=== PATIENT | female | born 1995 | race Caucasian/White ===

== ENCOUNTER 2024-04-07 19:40 | Inpatient (IN) ==
[2024-04-07] MEDS ORDERED: OXYTOCIN 30 UNITS/NSS 30 UNITS/500 ML BAG IV PRN (20:38)
[2024-04-07] MEDS ORDERED: LIDOCAINE 1% LOCAL 20 ML VIAL INFIL PRN (20:38)
--- NOTE | 2024-04-07 21:12 | History & Physical Report ---
Date of Service April 07, 2024 Assessment & Plan (1) Diabetes mellitus during , antepartum: Plan: Admit to L&D, offered to start IOL with cytotec tonight vs repeated tries with bey bulb, vs go home and start tomorrow. She elected to stay tonight and sta rt cytotec for cervical ripening. Because exam was so uncomfortable for patient, will give 50 mcg cytotec PO Q4h. OK for epidural when she desires, when cervix favorable will switch to pitocin. She is agreeable with this plan. Penicillin for GBS prophylaxis ordered. I discussed case with pharmacist - will plan to allow her to eat (since she did not plan to be staying tonight) before cytotec dose, therefore will give evening Lantus 55u dose. Then will have pharmacy sliding scale coverage for glucose, then when she progresses into active labor will switch to the L&D insulin/glucose IV protocol. She takes 1000mg metformin BID, will hold this for now given insulin protocols. History of Present Illness Chief Complaint: IOL Primary Care Provider: NO PCP 28yo @ 39 0, IOL for diabetes type 2 on insulin. Attempted bey bulb insertion multiple times tonight - too painful. Patient recalls that an IUD placement was extremely painful in the past also. Attempted both speculum insertion and manual-guided insertion, not able to tolerate. 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[employer]) insulin degludec 100 unit/mL (3 15 unit (0.15 mL) subcut DAILY #15 11/26/23 04/07/24 Rx mL) subcutaneous pen (Tresiba mL FlexTouch U-100 insulin) insulin pump cart,automated,BT #10 ea 12/06/23 04/07/24 Rx (Omnipod 5 G6 Pods (Gen 5) subcutaneous cartridge) insulin pump cartridge,automated #1 ea 12/06/23 04/07/24 Rx dose,BT with controller subcutaneous (Omnipod 5 G6 Intro Kit (Gen 5) subcutaneous cartridge with controller) blood-glucose sensor (Dexcom G7 #3 ea 12/10/23 04/07/24 Rx Sensor device) pen needle, diabetic 32 gauge x #200 ea 12/10/23 04/07/24 Rx 5/32" (BD Ultra-Fine Elicia Pen Needle) insulin aspart U-100 100 unit/mL 50 unit (0.5 mL) subcut DAILY #15 03/28/24 04/07/24 Rx (3 mL) subcutaneous pen (Novolog mL FlexPen U-100 Insulin aspart) insulin glargine 100 unit/mL (3 55 unit subcut QPM 04/07/24 04/07/24 History mL) subcutaneous pen (Lantus Solostar U-100 Insulin) metformin 500 mg tablet,extended 1,000 mg PO BID 04/07/24 04/07/24 History release 24 hr Patient History Medical History Osteochondroma knee History of chicken pox Surgical History S/P knee surgery Family History Mother Breast cancer Diabetes Grandmother (Maternal) Breast cancer Denies family history of Ovarian cancer Colorectal cancer Social History Smoking Status: Former smoker Do You Dip or Chew Tobacco: No; Hx Alcohol Use: No Hx Substance Use: No Preferred Language: Qatari Communication Ability: Effective Guyline Operator Required: No Beliefs That Will Affect Care: None marital status: marital status details: Stiven Rao (30) [phone] Current Living Situation: Family Current Living Situation Comment: lives with spouse, child, cats-spouse changing litter current occupational status: employed current occupation: [employer] Other Information That Helps Us Care for You: No Feels Safe at Home: Yes Safety Concerns: Feels Safe At This Time Assistive Devices: None Review of Systems All systems reviewed & are unremarkable except as noted in HPI & below Physical Exam Constitutional: WD/WN, vitals as above Respiratory: normal respiratory effort, lungs clear to auscultation no respiratory distress Cardiovascular: Rate/Rhythm: regular rate and regular rhythm Gastrointestinal (Abdomen): Inspection/Auscultation: abdomen normal to inspection Percussion/Palpation: abdomen soft; abdomen nontender Gravid. No s/s chorio or abruption. Skin: no rashes, warm and dry Psychiatric: A+Ox3, euthymic affect Results & Data Vital Signs (Past 12 Hours) Vital Signs Temp Pulse Resp BP 04/07/24 19:52 36.8 C 16 04/07/24 19:45 91 H 136/71 Coding Level of Care Code None Diagnoses Diabetes mellitus during , antepartum O24.919
[2024-04-07] MEDS ORDERED: DEXTROSE 50% 50 ML SYRINGE IV PRN ×2 (21:15→21:45)
[2024-04-07] MEDS ORDERED: CARBOHYDRATES FOR HYPOGLYCEMIA PO PRN ×2 (21:15→21:45)
[2024-04-07] MEDS ORDERED: GLUCOSE 40% GEL 15 GM TUBE PO PRN ×2 (21:15→21:45)
[2024-04-07] MEDS ORDERED: GLUCOSE 10 TAB/TUBE PO PRN ×2 (21:15→21:45)
[2024-04-07] MEDS ORDERED: GLUCAGON FOR INJ 1 MG VIAL SQ PRN ×2 (21:15→21:45)
[2024-04-07 21:52] LABS: Hematocrit (blood only) 30.7 % (37.0-47.0); Hemoglobin 9.9 g/dl (12.0-16.0); Mean Corpuscular Hemoglobin 26.6 pg (25.0-34.0); Mean Corpuscular Hgb Conc 32.2 g/dL (32.0-36.0); Mean Corpuscular Volume 82.5 fL (80.0-100.0); Mean Platelet Volume 9.8 fL (9.4-12.4); Platelet Count 273 K/uL (130-400); RDW Coefficient of Variation 15.6 % (11.5-14.5); RDW Standard Deviation 46.8 fL (36.4-46.3); Red Blood Count 3.72 M/uL (4.20-5.40); White Blood Count 9.18 K/ul (4.8-10.8)
[2024-04-07] MEDS: LANTUS PER UNIT CHARGE SQ SCH (22:10)
[2024-04-07] MEDS: INSULIN ASPART PER UNIT CHARGE SC ONE (22:15)
[2024-04-07] MEDS: miSOPROStoL 50 MCG TAB PO PRN (22:18)
[2024-04-07] MEDS: PENICILLIN GK 6 MU in SODIUM CHLORIDE 0.9% 250 ML IV STA (22:20)
[2024-04-08] MEDS: PENICILLIN GK 3 MU in DEXTROSE 5% 100 ML IV PRN (02:21)
[2024-04-08] MEDS: LACTATED RINGER'S 1,000 ML IV SCH ×3 (04:45→22:24)
[2024-04-08] MEDS ORDERED: SODIUM CHLORIDE 0.9% 1,000 ML IV PRN (04:51)
[2024-04-08] MEDS: INSULIN ASPART PER UNIT CHARGE SC ONE (04:53)
[2024-04-08] MEDS: OXYTOCIN 30 UNITS/NSS 30 UNITS/500 ML BAG IV PRN (04:54)
[2024-04-08] MEDS: INSULIN REGULAR 250 UNITS in SODIUM CHLORIDE 0.9% 247.5 ML IV PRN (05:52)
[2024-04-08] MEDS: DEXTROSE 5% 1,000 ML IV PRN (05:53)
[2024-04-08] MEDS ORDERED: DEXTROSE 50% 50 ML SYRINGE IV PRN ×2 (06:00→22:34)
[2024-04-08] MEDS: BUTORPHANOL TARTRATE 2 MG/ML VIAL IV ONE ×2 (09:10→18:15)
--- NOTE | 2024-04-08 09:28 | Labor Progress Brief Note ---
Date of Service April 08, 2024 Subjective Patient noting some contractions but not too painful. Assessment & Plan (1) Carrier of group B Streptococcus: (2) Diabetes mellitus type 2 in obese: (3) Encounter for induction of labor: Plan attempted exam after a dose of stadol. did not tolerate well. still would benefit from cervical ripening. Discussed various options. Patient elects for epidural now and then will reexamine. Consider bey if indicated. STill anticipate . fetus category one prior to stadol. Admission and Anticipated Discharge Date Admission Date: April 07, 2024 Physical Exam Physical Exam: cx--difficult exam, 1-2/75/-2/very posterior very uncomfortable with exam toco--q2-3min, pit at 5 efm--130s with mod variabiltiy, accels present, now with stadol effect Results & Data Vital Signs (Past 12 Hours) Vital Signs Temp Pulse Resp BP 04/08/24 09:02 80 132/75 04/08/24 08:14 77 124/61 04/08/24 07:20 36.8 C 82 20 114/67 04/08/24 05:58 72 109/58 L 04/08/24 05:00 16 04/08/24 05:00 36.6 C 16 04/08/24 04:58 77 109/56 L 04/07/24 23:47 88 115/59 L 04/07/24 23:29 36.5 C 04/07/24 23:00 16 04/07/24 23:00 16 Coding Level of Care Code None Diagnoses Carrier of group B Streptococcus Z22.330 Diabetes mellitus type 2 in obese E11.69; E66.9 Encounter for induction of labor Z34.90
--- NOTE | 2024-04-08 09:45 | Anesthesiology Consultation ---
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) insulin degludec 100 unit/mL (3 15 unit (0.15 mL) subcut DAILY #15 11/26/23 04/07/24 Unknown mL) subcutaneous pen (Tresiba mL FlexTouch U-100 insulin) insulin pump cart,automated,BT #10 ea 12/06/23 04/07/24 Unknown (Omnipod 5 G6 Pods (Gen 5) subcutaneous cartridge) insulin pump cartridge,automated #1 ea 12/06/23 04/07/24 Unknown dose,BT with controller subcutaneous (Omnipod 5 G6 Intro Kit (Gen 5) subcutaneous cartridge with controller) blood-glucose sensor (Dexcom G7 #3 ea 12/10/23 04/07/24 Unknown Sensor device) pen needle, diabetic 32 gauge x #200 ea 12/10/23 04/07/24 Unknown /32" (BD Ultra-Fine Elicia Pen Needle) insulin aspart U-100 100 unit/mL 50 unit (0.5 mL) subcut DAILY #15 03/28/24 04/07/24 1 Day Ago (3 mL) subcutaneous pen (Novolog mL ~04/06/24 FlexPen U-100 Insulin aspart) insulin glargine 100 unit/mL (3 55 unit subcut QPM 04/07/24 04/07/24 1 Day Ago mL) subcutaneous pen (Lantus ~04/06/24 Solostar U-100 Insulin) metformin 500 mg tablet,extended 1,000 mg PO BID 04/07/24 04/07/24 1 Day Ago release 24 hr ~04/06/24 Active Medications Generic Name Dose Route Start Last Admin Trade Name Freq PRN Reason Stop Dose Admin Oxytocin 30 units in 500 mls @ 5 mls/hr 04/07/24 20:43 04/08/24 07:47 Pitocin 30 Units/Nss IV 04/09/24 20:42 0.3 units/hr .Q24H PRN 5 mls/hr Labor Induction/Augmentation Titration Protocol 0.3 UNITS/HR Penicillin G Potassium 3 mu/ 106 mls @ 100 mls/hr 04/07/24 23:38 04/08/24 06:20 Dextrose IV 04/17/24 23:37 100 mls/hr Q4H PRN Administration GBS(+) Until Delivery Insulin Human Regular 250 250 mls @ 0 mls/hr 04/08/24 06:00 04/08/24 08:45 units/ Sodium Chloride IV 05/08/24 05:59 0.5 units/hr .Q0M PRN 0.5 mls/hr BSG 80mg/dL or ABOVE Titration Protocol Per Protocol Dextrose 1,000 mls @ 0 mls/hr 04/08/24 04:45 04/08/24 08:45 D5w IV 05/08/24 04:44 100 mls/hr .Q0M PRN Infusion BSG 180 or below Protocol Lactated Ringer's 1,000 mls @ 50 mls/hr 04/08/24 06:00 04/08/24 07:46 Lr IV 04/09/24 05:59 50 mls/hr .Q20H BREANNE Infusion Misoprostol 50 mcg 04/07/24 20:38 04/07/24 22:18 Misoprostol 50 Mcg Tab PO 05/07/24 20:37 50 mcg Q4H PRN Administration cervical ripening Past Medical History Medical History (Updated 04/08/24 @ 09:45 by Sudheer Gonzalez MD) Diabetes mellitus during , antepartum Osteochondroma knee History of chicken pox Past Family History Family History Mother Breast cancer Diabetes Grandmother (Maternal) Breast cancer Denies family history of Ovarian cancer Colorectal cancer Past Surgical History Surgical History S/P knee surgery Social History Smoking Status: Former smoker Do You Dip or Chew Tobacco: No Hx Alcohol Use: No Hx Substance Use: No Physical Exam Vital Signs Last Vital Signs Temp 36.8 C 04/08/24 07:20 Pulse 80 04/08/24 09:02 Resp 20 04/08/24 07:20 BP 132/75 04/08/24 09:02 Testing Laboratory Results 04/07/24 21:13 04/07/24 21:13 Blood Type A Positive 04/07/24 21:13 Blood Type Cancelled 04/07/24 21:13 Antibody Screen Cancelled 04/07/24 21:13 Antibody Screen NEGATIVE 04/07/24 21:13 04/07/24 21:45 POC Glucose 109 H
[2024-04-08] MEDS: fentaNYL citrate PF 100 MCG/2 ML VIAL ONE (10:10)
[2024-04-08] MEDS: LIDOCAINE 2%/EPINEPHRINE 1:200,000 20 ML PF ONE (10:10)
[2024-04-08] MEDS: BUPIVACAINE 0.25% PF 30 ML VIAL ONE (10:10)
[2024-04-08] MEDS: SODIUM CHLORIDE 0.9% PF INJ 10 ML VIAL ONE (10:10)
[2024-04-08] MEDS: fentANYL 2 MCG/ML BUPIVacaine 0.125%-NSS 100ML BAG ONE (10:12)
[2024-04-08] MEDS ORDERED: BUPIVACAINE 0.25% PF 30 ML VIAL EPI PRN (10:12)
[2024-04-08] MEDS ORDERED: ONDANSETRON INJ 2 MG/ML 2 ML VIAL IV PRN ×2 (10:12→21:40)
[2024-04-08] MEDS ORDERED: fentaNYL citrate PF 100 MCG/2 ML VIAL EPI PRN (10:12)
[2024-04-08] MEDS ORDERED: NALOXONE HCL 1 MG in SODIUM CHLORIDE 0.9% 1,000 ML IV PRN ×2 (10:12→21:40)
[2024-04-08] MEDS ORDERED: LIDOCAINE 2% MPF LOCAL 5 ML VIAL EPI PRN (10:12)
[2024-04-08] MEDS ORDERED: ePHEDrine sulfate 50 MG/ML AMP IV PRN ×2 (10:12→21:40)
[2024-04-08] MEDS ORDERED: SODIUM CHLORIDE 0.9% PF INJ 10 ML VIAL EPI PRN (10:12)
[2024-04-08] MEDS ORDERED: NALOXONE HCL 0.4 MG/1 ML VIAL/CARP IV PRN ×2 (10:12→21:40)
[2024-04-08] MEDS ORDERED: ROPIVACAINE 0.5% PF 5 MG/ML 20 ML VIAL EPI PRN (10:12)
--- NOTE | 2024-04-08 11:46 | Labor Progress Brief Note ---
Date of Service April 08, 2024 Subjective comfortable after epidura. Assessment & Plan (1) Diabetes mellitus type 2 in obese: (2) Encounter for induction of labor: (3) Carrier of group B Streptococcus: Plan not a candidate for bey at this point. has gross srom. Plan to continue pitocin at this point. cx more favorable now that I can get a good exam. Fetus category one. AT us on 03/13, AC and efw both >95%. efw at that time 3283+/- 17 oz (476gm). Discussed that would like not instrument her as with larger baby and DM at higher risk of shoulder dystocia. Do not feel need to offer primary c/s. Has a proven pelvis. I suspect efw around 9-9.5. Patient and spouse express understanding. Admission and Anticipated Discharge Date Admission Date: April 07, 2024 Physical Exam Physical Exam: in placing patient in lithotomy position, noted her pad was wet and fluid was coming out of vagina. sse--fluid in vagina, clear sve--3/75/-2/soft toco--q2-3min, pit at 5 efm--130s with mod variability, accels to 150s Results & Data Vital Signs (Past 12 Hours) Vital Signs Temp Pulse Resp BP Pulse Ox 04/08/24 11:38 71 99 04/08/24 11:33 72 97 04/08/24 11:31 72 125/66 04/08/24 11:28 36.5 C 75 98 04/08/24 11:23 91 H 96 04/08/24 11:18 65 100 04/08/24 11:16 71 121/70 04/08/24 11:13 97 04/08/24 11:13 60 04/08/24 11:13 58 L 93 04/08/24 11:08 59 L 97 04/08/24 11:03 69 97 04/08/24 11:02 73 124/69 04/08/24 10:58 66 96 04/08/24 10:53 64 94 04/08/24 10:51 61 94 04/08/24 10:48 73 96 04/08/24 10:43 94 04/08/24 10:43 59 L 04/08/24 10:43 63 94 04/08/24 10:42 59 L 110/63 04/08/24 10:38 95 04/08/24 10:38 61 04/08/24 10:38 60 116/65 04/08/24 10:35 74 94 04/08/24 10:34 62 119/57 L 04/08/24 10:33 63 96 04/08/24 10:28 62 95 04/08/24 10:26 66 127/60 04/08/24 10:23 66 97 04/08/24 10:19 84 124/80 89 L 04/08/24 10:18 72 98 04/08/24 10:16 75 123/60 04/08/24 10:14 72 127/60 04/08/24 10:13 97 04/08/24 10:13 70 04/08/24 10:13 79 140/73 04/08/24 10:12 83 91 04/08/24 10:10 75 131/63 04/08/24 10:08 69 146/66 H 96 04/08/24 10:07 78 145/61 H 04/08/24 10:05 86 94 04/08/24 10:03 98 H 92 04/08/24 10:00 107 H 92 04/08/24 09:58 79 143/84 H 96 04/08/24 09:53 84 100 04/08/24 09:48 77 96 04/08/24 09:43 77 97 04/08/24 09:02 80 132/75 04/08/24 08:14 77 124/61 04/08/24 07:20 36.8 C 82 20 114/67 04/08/24 05:58 72 109/58 L 04/08/24 05:00 16 04/08/24 05:00 36.6 C 16 04/08/24 04:58 77 109/56 L 04/07/24 23:47 88 115/59 L Coding Level of Care Code None Diagnoses Diabetes mellitus type 2 in obese E11.69; E66.9 Encounter for induction of labor Z34.90 Carrier of group B Streptococcus Z22.330
[2024-04-08] MEDS: ePHEDrine sulfate 50 MG/ML AMP ONE (16:07)
[2024-04-08] MEDS ORDERED: NURSING L&D Epidural Breakthrough Pain Update ONE (16:08)
--- NOTE | 2024-04-08 17:20 | Labor Progress Brief Note ---
Date of Service April 08, 2024 Subjective Notes some contractions but does not want to push buttom because the numbness is disconcerting to her. Assessment & Plan (1) Diabetes mellitus type 2 in obese: (2) Encounter for induction of labor: (3) Carrier of group B Streptococcus: Plan await to see adequacy of contractions. Can increase pit if not adequate. made a little change so hopefully on the verge of active labor. fetus category one. Admission and Anticipated Discharge Date Admission Date: April 07, 2024 Physical Exam Physical Exam: cx--4/80/-2 toco--q2-3min, pit at 20 iupc placed efm--130s with mod variability, accels present, no decels Results & Data Vital Signs (Past 12 Hours) Vital Signs Temp Pulse Resp BP Pulse Ox 04/08/24 17:13 87 96 04/08/24 17:08 82 96 04/08/24 17:04 93 H 93 04/08/24 17:03 81 96 04/08/24 17:02 73 131/77 04/08/24 16:58 79 96 04/08/24 16:53 79 98 04/08/24 16:48 95 H 20 162/88 H 98 04/08/24 16:43 72 97 04/08/24 16:38 73 95 04/08/24 16:33 71 97 04/08/24 16:32 79 147/87 H 04/08/24 16:28 72 94 04/08/24 16:25 67 94 04/08/24 16:23 73 96 04/08/24 16:18 96 04/08/24 16:18 74 04/08/24 16:18 74 134/83 04/08/24 16:13 74 97 04/08/24 16:08 71 96 04/08/24 16:03 97 04/08/24 16:03 75 04/08/24 16:03 73 141/75 H 04/08/24 15:58 73 97 04/08/24 15:53 84 99 04/08/24 15:48 69 95 04/08/24 15:46 92 H 20 121/57 L 04/08/24 15:43 88 98 04/08/24 15:38 72 94 04/08/24 15:33 67 97 04/08/24 15:31 71 115/57 L 04/08/24 15:28 70 95 04/08/24 15:26 71 94 04/08/24 15:23 71 94 04/08/24 15:19 69 94 04/08/24 15:18 95 04/08/24 15:18 70 04/08/24 15:18 71 113/56 L 04/08/24 15:13 73 97 04/08/24 15:08 76 96 04/08/24 15:03 77 97 04/08/24 15:02 76 117/61 04/08/24 14:58 83 98 04/08/24 14:55 36.8 C 04/08/24 14:53 82 97 04/08/24 14:48 96 04/08/24 14:48 83 04/08/24 14:48 81 20 128/71 04/08/24 14:43 86 97 04/08/24 14:38 68 96 04/08/24 14:33 68 96 04/08/24 14:32 65 131/67 04/08/24 14:28 67 96 04/08/24 14:23 74 94 04/08/24 14:19 71 128/66 04/08/24 14:18 72 95 04/08/24 14:14 71 94 04/08/24 14:13 76 96 04/08/24 14:08 78 95 04/08/24 14:03 80 96 04/08/24 14:01 78 134/78 04/08/24 13:58 78 98 04/08/24 13:53 83 97 04/08/24 13:49 70 94 04/08/24 13:48 70 95 04/08/24 13:47 72 20 132/67 04/08/24 13:43 75 95 04/08/24 13:38 69 96 04/08/24 13:33 74 97 04/08/24 13:31 78 134/70 04/08/24 13:30 91 H 93 04/08/24 13:28 77 97 04/08/24 13:23 76 98 04/08/24 13:18 96 04/08/24 13:18 69 04/08/24 13:18 66 123/66 04/08/24 13:13 69 96 04/08/24 13:08 78 97 04/08/24 13:03 68 96 04/08/24 13:02 67 133/64 04/08/24 12:58 72 97 04/08/24 12:53 76 97 04/08/24 12:48 79 97 04/08/24 12:47 65 18 123/66 04/08/24 12:43 68 97 04/08/24 12:38 80 97 04/08/24 12:33 78 98 04/08/24 12:32 75 135/75 04/08/24 12:28 67 96 04/08/24 12:23 67 97 04/08/24 12:18 64 96 04/08/24 12:17 61 131/72 04/08/24 12:13 66 96 04/08/24 12:08 64 96 04/08/24 12:03 97 04/08/24 12:03 63 04/08/24 12:03 65 132/76 04/08/24 11:58 67 95 04/08/24 11:53 72 97 04/08/24 11:48 73 98 04/08/24 11:47 74 127/76 04/08/24 11:43 66 98 04/08/24 11:38 71 99 04/08/24 11:33 72 97 04/08/24 11:31 72 125/66 04/08/24 11:28 36.5 C 75 98 04/08/24 11:23 91 H 96 04/08/24 11:18 65 100 04/08/24 11:16 71 121/70 04/08/24 11:13 97 04/08/24 11:13 60 04/08/24 11:13 58 L 93 04/08/24 11:08 59 L 97 04/08/24 11:03 69 97 04/08/24 11:02 73 124/69 04/08/24 10:58 66 96 04/08/24 10:53 64 94 04/08/24 10:51 61 94 04/08/24 10:48 73 96 04/08/24 10:43 94 04/08/24 10:43 59 L 04/08/24 10:43 63 94 04/08/24 10:42 59 L 110/63 04/08/24 10:38 95 04/08/24 10:38 61 04/08/24 10:38 60 116/65 04/08/24 10:35 74 94 04/08/24 10:34 62 119/57 L 04/08/24 10:33 63 96 04/08/24 10:28 62 95 04/08/24 10:26 66 127/60 04/08/24 10:23 66 97 04/08/24 10:19 84 124/80 89 L 04/08/24 10:18 72 98 04/08/24 10:16 75 123/60 04/08/24 10:14 72 127/60 04/08/24 10:13 97 04/08/24 10:13 70 04/08/24 10:13 79 140/73 04/08/24 10:12 83 91 04/08/24 10:10 75 131/63 04/08/24 10:08 69 146/66 H 96 04/08/24 10:07 78 145/61 H 04/08/24 10:05 86 94 04/08/24 10:03 98 H 92 04/08/24 10:00 107 H 92 04/08/24 09:58 79 143/84 H 96 04/08/24 09:53 84 100 04/08/24 09:48 77 96 04/08/24 09:43 77 97 04/08/24 09:02 80 132/75 04/08/24 08:14 77 124/61 04/08/24 07:20 36.8 C 82 20 114/67 04/08/24 05:58 72 109/58 L Coding Level of Care Code None Diagnoses Diabetes mellitus type 2 in obese E11.69; E66.9 Encounter for induction of labor Z34.90 Carrier of group B Streptococcus Z22.330
[2024-04-08] MEDS: fentANYL 2 MCG/ML BUPIVacaine 0.125%-NSS 100ML BAG EPI PRN (17:24)
[2024-04-08] MEDS ORDERED: Continuous Glucose Monitor SCH (17:45)
[2024-04-08] MEDS: Continuous Glucose Monitor SCH (19:15)
--- NOTE | 2024-04-08 19:59 | Labor Progress Brief Note ---
Date of Service April 08, 2024 Subjective Patient not coping well. continues to ask for med for anxiety. Everything is hurting but she is hesitant to push her epidural button. iupc removed as was not working. she is now asking about c/s. Assessment & Plan (1) Diabetes mellitus type 2 in obese: (2) Encounter for induction of labor: (3) Carrier of group B Streptococcus: Plan Reviewed progress up to this point. Not yet in active labor. Still hopeful that she will achieve active labor. fetus category one. Discussed the pros/cons of continued SEAN vs. elective primary c/s. discussed that it would be up to her. Questions answered. The risks of surgery were discussed with the patient including the risks of anesthesia, bleeding requiring transfusion, infection, poor wound healing, urinary retention, damage to surrounding structures including bowels, bladder, vessels, nerves and ureters that may require further surgery, hospitalization or intervention, injury to fetus. The other risks of any surgery were discussed including heart attack, blood clots, stroke or . Discussed that I think she would do better if we got her more comfortable. Finally she expressed concern that she would push for several hours and need a c/s anyway and also concern for shoulder dystocia. Discussed there is no way for me to be able to know the answer to any of these things. They are considering. Admission and Anticipated Discharge Date Admission Date: April 07, 2024 Results & Data Vital Signs (Past 12 Hours) Vital Signs Temp Pulse Resp BP Pulse Ox 04/08/24 19:53 78 98 04/08/24 19:48 75 94 04/08/24 19:43 83 97 04/08/24 19:38 80 97 04/08/24 19:33 79 138/79 98 04/08/24 19:28 73 98 04/08/24 19:23 72 96 04/08/24 19:18 71 98 04/08/24 19:17 81 132/86 04/08/24 19:13 71 98 04/08/24 19:10 18 04/08/24 19:10 36.8 C 18 04/08/24 19:08 89 98 04/08/24 19:03 82 98 04/08/24 19:02 85 04/08/24 19:02 86 147/82 H 93 04/08/24 18:58 67 94 04/08/24 18:55 65 94 04/08/24 18:53 65 94 04/08/24 18:50 65 94 04/08/24 18:48 64 95 04/08/24 18:47 63 139/78 04/08/24 18:43 67 94 04/08/24 18:40 66 94 04/08/24 18:38 65 94 04/08/24 18:35 64 94 04/08/24 18:33 61 125/68 95 04/08/24 18:29 61 94 04/08/24 18:28 64 95 04/08/24 18:23 91 H 97 04/08/24 18:18 82 97 04/08/24 18:13 69 97 04/08/24 18:08 77 96 04/08/24 18:03 77 97 04/08/24 18:02 80 145/68 H 04/08/24 17:58 72 95 04/08/24 17:54 77 94 04/08/24 17:53 90 96 04/08/24 17:48 76 95 04/08/24 17:47 75 117/56 L 04/08/24 17:43 81 97 04/08/24 17:38 79 97 04/08/24 17:33 97 04/08/24 17:33 84 04/08/24 17:33 74 124/63 04/08/24 17:28 96 H 98 04/08/24 17:23 76 97 04/08/24 17:19 80 124/57 L 04/08/24 17:18 81 96 04/08/24 17:13 87 96 04/08/24 17:08 82 96 04/08/24 17:04 93 H 93 04/08/24 17:03 81 96 04/08/24 17:02 73 131/77 04/08/24 16:58 79 96 04/08/24 16:53 79 98 04/08/24 16:48 95 H 20 162/88 H 98 04/08/24 16:43 72 97 04/08/24 16:38 73 95 04/08/24 16:33 71 97 04/08/24 16:32 79 147/87 H 04/08/24 16:28 72 94 04/08/24 16:25 67 94 04/08/24 16:23 73 96 04/08/24 16:18 96 04/08/24 16:18 74 04/08/24 16:18 74 134/83 04/08/24 16:13 74 97 04/08/24 16:08 71 96 04/08/24 16:03 97 04/08/24 16:03 75 04/08/24 16:03 73 141/75 H 04/08/24 15:58 73 97 04/08/24 15:53 84 99 04/08/24 15:48 69 95 04/08/24 15:46 92 H 20 121/57 L 04/08/24 15:43 88 98 04/08/24 15:38 72 94 04/08/24 15:33 67 97 04/08/24 15:31 71 115/57 L 04/08/24 15:28 70 95 04/08/24 15:26 71 94 04/08/24 15:23 71 94 04/08/24 15:19 69 94 04/08/24 15:18 95 04/08/24 15:18 70 04/08/24 15:18 71 113/56 L 04/08/24 15:13 73 97 04/08/24 15:08 76 96 04/08/24 15:03 77 97 04/08/24 15:02 76 117/61 04/08/24 14:58 83 98 04/08/24 14:55 36.8 C 04/08/24 14:53 82 97 04/08/24 14:48 96 04/08/24 14:48 83 04/08/24 14:48 81 20 128/71 04/08/24 14:43 86 97 04/08/24 14:38 68 96 04/08/24 14:33 68 96 04/08/24 14:32 65 131/67 04/08/24 14:28 67 96 04/08/24 14:23 74 94 04/08/24 14:19 71 128/66 04/08/24 14:18 72 95 04/08/24 14:14 71 94 04/08/24 14:13 76 96 04/08/24 14:08 78 95 04/08/24 14:03 80 96 04/08/24 14:01 78 134/78 04/08/24 13:58 78 98 04/08/24 13:53 83 97 04/08/24 13:49 70 94 04/08/24 13:48 70 95 04/08/24 13:47 72 20 132/67 04/08/24 13:43 75 95 04/08/24 13:38 69 96 04/08/24 13:33 74 97 04/08/24 13:31 78 134/70 04/08/24 13:30 91 H 93 04/08/24 13:28 77 97 04/08/24 13:23 76 98 04/08/24 13:18 96 04/08/24 13:18 69 04/08/24 13:18 66 123/66 04/08/24 13:13 69 96 04/08/24 13:08 78 97 04/08/24 13:03 68 96 04/08/24 13:02 67 133/64 04/08/24 12:58 72 97 04/08/24 12:53 76 97 04/08/24 12:48 79 97 04/08/24 12:47 65 18 123/66 04/08/24 12:43 68 97 04/08/24 12:38 80 97 04/08/24 12:33 78 98 04/08/24 12:32 75 135/75 04/08/24 12:28 67 96 04/08/24 12:23 67 97 04/08/24 12:18 64 96 04/08/24 12:17 61 131/72 04/08/24 12:13 66 96 04/08/24 12:08 64 96 04/08/24 12:03 97 04/08/24 12:03 63 04/08/24 12:03 65 132/76 04/08/24 11:58 67 95 04/08/24 11:53 72 97 04/08/24 11:48 73 98 04/08/24 11:47 74 127/76 04/08/24 11:43 66 98 04/08/24 11:38 71 99 04/08/24 11:33 72 97 04/08/24 11:31 72 125/66 04/08/24 11:28 36.5 C 75 98 04/08/24 11:23 91 H 96 04/08/24 11:18 65 100 04/08/24 11:16 71 121/70 04/08/24 11:13 97 04/08/24 11:13 60 04/08/24 11:13 58 L 93 04/08/24 11:08 59 L 97 04/08/24 11:03 69 97 04/08/24 11:02 73 124/69 04/08/24 10:58 66 96 04/08/24 10:53 64 94 04/08/24 10:51 61 94 04/08/24 10:48 73 96 04/08/24 10:43 94 04/08/24 10:43 59 L 04/08/24 10:43 63 94 04/08/24 10:42 59 L 110/63 04/08/24 10:38 95 04/08/24 10:38 61 04/08/24 10:38 60 116/65 04/08/24 10:35 74 94 04/08/24 10:34 62 119/57 L 04/08/24 10:33 63 96 04/08/24 10:28 62 95 04/08/24 10:26 66 127/60 04/08/24 10:23 66 97 04/08/24 10:19 84 124/80 89 L 04/08/24 10:18 72 98 04/08/24 10:16 75 123/60 04/08/24 10:14 72 127/60 04/08/24 10:13 97 04/08/24 10:13 70 04/08/24 10:13 79 140/73 04/08/24 10:12 83 91 04/08/24 10:10 75 131/63 04/08/24 10:08 69 146/66 H 96 04/08/24 10:07 78 145/61 H 04/08/24 10:05 86 94 04/08/24 10:03 98 H 92 04/08/24 10:00 107 H 92 04/08/24 09:58 79 143/84 H 96 04/08/24 09:53 84 100 04/08/24 09:48 77 96 04/08/24 09:43 77 97 04/08/24 09:02 80 132/75 04/08/24 08:14 77 124/61 Coding Level of Care Code None Diagnoses Diabetes mellitus type 2 in obese E11.69; E66.9 Encounter for induction of labor Z34.90 Carrier of group B Streptococcus Z22.330
[2024-04-08] MEDS: ACETAMINOPHEN 500 MG TAB ONE (20:40)
[2024-04-08] MEDS ORDERED: MoRPHine SULFATE PF 1 MG/ML 10 ML AMP/VIAL ONE (20:51)
[2024-04-08] MEDS ORDERED: LIDOCAINE 2%/EPINEPHRINE 1:200,000 20 ML PF ONE (20:51)
[2024-04-08] MEDS: ACETAMINOPHEN 500 MG TAB PO SCH (20:53)
[2024-04-08] MEDS: ceFAZolin 3000MG 3,000 MG/72.5 ML BAG IV SCH (20:55)
[2024-04-08] MEDS: CITRIC ACID/SODIUM CITRATE 15 ML UDC PO SCH (20:55)
[2024-04-08] MEDS ORDERED: DEXAMETHASONE SOD INJ 4 MG/ML VIAL ONE (21:23)
[2024-04-08] MEDS ORDERED: SODIUM CHLORIDE 0.9% PF INJ 10 ML VIAL ONE (21:23)
[2024-04-08] MEDS ORDERED: OXYTOCIN 10 UNITS/ML VIAL ONE (21:23)
[2024-04-08] MEDS ORDERED: PHENYLEPHRINE HCL 25 MG/250 ML NSS IV ONE (21:23)
[2024-04-08] MEDS ORDERED: ePHEDrine sulfate 50 MG/5 ML SYR ONE (21:23)
[2024-04-08] MEDS ORDERED: ONDANSETRON INJ 2 MG/ML 2 ML VIAL ONE (21:23)
[2024-04-08] MEDS ORDERED: METOCLOPRAMIDE HCL INJ 5 MG/ML 2 ML VIAL ONE (21:23)
[2024-04-08] MEDS ORDERED: diphenhydrAMINE 50 MG/ML VIAL IV PRN (21:40)
[2024-04-08] MEDS ORDERED: PROMETHAZINE 6.25 MG/50.25 ML BAG IV PRN (21:40)
[2024-04-08] MEDS ORDERED: NALOXONE HCL 0.08 MG in SYRINGE 1.8 ML IV PRN (21:40)
[2024-04-08] MEDS ORDERED: NALBUPHINE HCL INJ 10 MG/ML AMP IV PRN (21:40)
[2024-04-08] MEDS ORDERED: MoRPHine SULFATE 2 MG/ML CARP IV PRN (21:40)
[2024-04-08] MEDS ORDERED: DC INTRASPINAL MORPHINE SCH (21:45)
[2024-04-08] MEDS ORDERED: NO NARCOTICS OR SEDATIVES SCH (21:45)
[2024-04-08] MEDS: BUPIVACAINE 0.25% PF 30 ML VIAL EPI STA (22:02)
[2024-04-08] MEDS: LIDOCAINE 2%/EPINEPHRINE 1:200,000 20 ML PF EPI STA (22:02)
[2024-04-08] MEDS: fentaNYL citrate PF 100 MCG/2 ML VIAL EPI STA (22:02)
[2024-04-08] MEDS: SODIUM CHLORIDE 0.9% PF INJ 10 ML VIAL EPI STA (22:03)
--- NOTE | 2024-04-08 22:09 | Anesthesia Procedure Note ---
Date of Service April 08, 2024 Anesthesia Post Epidural Note Vital Signs Vital Signs: Temp Pulse Resp BP Pulse Ox 36.8 C 90 18 137/77 98 04/08/24 19:15 04/08/24 22:07 04/08/24 19:15 04/08/24 21:01 04/08/24 22:07 Pain Intensity Abdomen: Pain Intensity: 5 Notes Mental Status: alert / awake / arousable and participated in evaluation Nausea / Vomiting: adequately controlled Pain: adequately controlled Airway Patency, RR, SpO2: stable & adequate BP & HR: stable & adequate Hydration State: stable & adequate Neuraxial Anesthesia: was administered and sensory block is resolving Anesthetic Complications: no major complications apparent Epidural: Removed without complications and With tip intact
[2024-04-08] MEDS ORDERED: MAGNESIUM HYDROXIDE SUSP 30 ML UDC PO PRN (22:20)
[2024-04-08] MEDS ORDERED: CALCIUM CARBONATE 500 MG CHEWABLE TAB PO PRN (22:20)
[2024-04-08] MEDS ORDERED: BENZOCAINE 20% SPRY 85 APPLN/85 GM CAN EXT PRN (22:20)
[2024-04-08] MEDS ORDERED: HYDROCORTISONE ACETATE 25 MG SUPP PR PRN (22:20)
[2024-04-08] MEDS ORDERED: SENNA 8.6 MG TAB PO PRN (22:20)
[2024-04-08] MEDS: AZITHROMYCIN 500 MG in DEXTROSE 5% 250 ML IV STA (22:22)
[2024-04-08] MEDS: MoRPHine SULFATE PF 1 MG/ML 10 ML AMP/VIAL EPI ONE (22:23)
--- NOTE | 2024-04-08 22:25 | Operative Report ---
PG Post Operative Report Pre & Post Diagnosis Operation Date: 04/08/24 20:30 Pre-Op Diagnosis: 1. Intrauterine at 39+1 weeks 2. Declines continuation of trail of labor, requesting a c/s 3. Diabetes, insulin controlled Post-Op Diagnosis: 1. Intrauterine at 39+1 weeks 2. Declines continuation of trail of labor, requesting a c/s 3. Diabetes, insulin controlled I identified the patient and participated in the time-out.: Yes Procedure Operation Date: 04/08/24 20:30 Actual Procedures p Primary low transverse Section in LD, live female infant born at 2125 - Martha Stephens MD, FACOG Surgeon Martha Stephens MD, FACOG Electrical Sign Wirer Helper Dixon Umanzor RN and Dixon Quiñonez RN Estimated Blood Loss 391 Findings Consistent with Post-Op Diagnosis viable female in cephalic presentation, clear fluid, apgars 8/9. normal appearing uterus/tubes/ovaries. Weight 9#7oz Fluids 1500cc Specimens none Drains bey Anesthesia Type Labor Epidural Complications none Disposition Accompanied Patient To Recovery: Yes Disposition: L&D Indications Patient is a 28yowf at 39 1/7 weeks who presents to labor and delivery for iol for pregestational diabetes. Could not place bey and received po cytotec for cervical ripening. Did not tolerate any exam well so got an epidural at 1-2cm. It was then discovered she had srom and was 2-3 cm. continued pitocin. she did progress to 4/80/-2. Unfortunately was not tolerating anything well with the labor. she was concerned she would push for several hours and need c/s anyway. She was also concerned about potential for shoulder dystocia. Discussed the r/b/se of continued renata and c/s and choses to proceed with surgery. Description of Procedure The patient was taken to the operating room where she was identified verbally and by bracelet. She was placed on the OR table and her epidural was dosed. A Bey catheter had been placed sterilely. the patient was prepped and draped in a normal standard fashion. the anesthetic was tested and found to be adequate. A time-out was held, identifying correct patient, procedure, positioning and preoperative antibiotics. There were no concerns. A Pfannenstiel skin incision was made with a knife and taken down to the underlying layer of fascia with the knife and Bovie electrocautery. Bleeding was attended to with the Bovie. The fascia was incised in the midline with the knife and taken out laterally bluntly and with scissors. The superior edge of the fascial incision was grasped, elevated and the underlying layer of rectus muscle was taken off bluntly and with scissors. In a similar fashion, the inferior edge of the fascial incision was grasped, elevated and the underlying layer of rectus muscle was taken off bluntly and with scissors. The muscles were bluntly in the midline. The peritoneum was entered bluntly. The incision was then stretched. The bladder blade was placed. The vesicouterine peritoneum was identified, entered with scissors and taken out laterally with scissors. The bladder flap was created digitally A hysterotomy incision was scored with a knife and the incision was stretched superiorly and inferiorly with the sole rounding machine operator's fingers. The operators hand was placed into the incision and the head was delivered atraumatically. No nuchal cord. The nose and mouth were bulb suctioned. the rest of the infant was then delivered without difficulty. The nose and mouth were again bulb suctioned. The cord was clamped and cut and the was then handed off to the awaiting damage adjuster for drying and attention. Cord blood and segment were obtained. The placenta was Manually extracted. The uterus was exteriorized and cleared of all clot and debris with moistened laparotomy sponges. The hysterotomy incision was repaired in two layers, the first in a running locked layer, the second in an imbricating layer. Hemostasis was noted to be good. Posterior cul-de-sac was irrigated and cleared of all clot and debris. The hysterotomy incision was again and two sutures needed for hemostasis. the uterus was reinteriorized. Hysterotomy incision was again and a couple of sutures were needed for hemostasis. Rectus muscles were inspected and hemostatic. The fascia was then reapproximated with 0 Vicryl starting at the edges and meeting in the midline. The subcuticular tissues were copiously irrigated and bleeding was attended to with cautery. The sub-Q was closed with 2-0 plain gut. The skin was then closed with 4-0 Vicryl in a subcuticular fashion. All sponge, lap and needle counts were correct x 2. the patient tolerated the procedure well and taken to recovery in stable condition. I attest to the content of the Intraoperative Record and any orders documented therein. Any exceptions are noted below. OB Procedure Charges 91407
[2024-04-08] MEDS ORDERED: GLUCOSE 10 TAB/TUBE PO PRN (22:34)
[2024-04-08] MEDS ORDERED: GLUCAGON FOR INJ 1 MG VIAL SQ PRN (22:34)
[2024-04-08] MEDS ORDERED: CARBOHYDRATES FOR HYPOGLYCEMIA PO PRN (22:34)
[2024-04-08] MEDS ORDERED: GLUCOSE 40% GEL 15 GM TUBE PO PRN (22:34)
[2024-04-08] MEDS: DIPHTHER/TETAN/PERTUS Vaccine (Tdap, Adol/Adult) 0.5mL IM ONE (22:42)
[2024-04-08] MEDS: KETOROLAC 30 MG/ML VIAL IV SCH (22:50)
[2024-04-08] MEDS: OXYTOCIN 30 UNITS/LR 1,003 ML IV SCH (22:51)
[2024-04-09] MEDS: oxyCODONE HCL IR 5 MG TAB (IMMEDIATE RELEASE) PO PRN (01:51)
[2024-04-09 02:08] VITALS: RESP 18
--- NOTE | 2024-04-09 05:22 | Obstetrical Progress Note ---
Date of Service <Devan Rivera MD - Last Filed: 04/09/24 07:07> April 09, 2024 Assessment & Plan <Devan Rivera MD - Last Filed: 04/09/24 07:07> (1) Carrier of group B Streptococcus: (2) care and examination: Plan POD#1 s/p LTCS: Stable, continue routine care, working on regaining bowel & bladder function, continue OOB and ambulation, diet as tolerated (advised eating in bedside chair), start home meds this morning Rh+, gbs+, ri <Martha Stephens MD, FACOG - Last Filed: 04/09/24 07:19> (1) Carrier of group B Streptococcus: (2) care and examination: Subjective <Devan Rivera MD - Last Filed: 04/09/24 07:07> Ambulation: ambulating normally Voiding: no voiding problems Passing Gas:: Yes Diet Tolerance:: regular diet Lochia:: Small Feeding Type:: breast feeding Faith is a 28 y/o female who is POD#1 following delivery at term. Is having 3/10 abdominal cramping/pain, which is well managed on analgesics Cath just removed, is tolerating meals, ambulating normally No BM or flatus yet Currently pumping breast milk Constitutional: no fever, no chills or no sweats Respiratory: no dyspnea Cardiovascular: no chest pain, no palpitations or no calf pain Breast: no breast pain Genitourinary (female): no dysuria Neurologic: no headache(s) no changes in vision, no headaches Physical Exam <Devan Rivera MD - Last Filed: 04/09/24 07:07> General: Alert, oriented. No acute distress. Cardiac: Regular rate and rhythm, no murmurs, rubs, or gallops. Respiratory: Clear to auscultation bilaterally, no wheezes/rales/rhonchi. No increased work of breathing. Symmetrical chest rise. No respiratory distress. Abdomen: Soft, nontender, nondistended. Bowel sounds present. Uterus: Uterine fundus firm, nontender. Surgical dressing c/d/i Lower extremities: No lower extremity edema or swelling. No deep calf pain. Results & Data <Devan Rivera MD - Last Filed: 04/09/24 07:07> Vital Signs (Past 12 Hours) Vital Signs Temp Pulse Pulse Resp BP BP Pulse Ox 04/09/24 03:00 18 93 04/09/24 02:00 18 94 04/09/24 01:45 36.6 C 72 20 115/72 97 04/09/24 00:11 84 119/55 L 04/09/24 00:10 36.8 C 18 04/09/24 00:07 78 90 04/09/24 00:02 82 94 04/09/24 00:01 83 123/60 04/08/24 23:57 79 94 04/08/24 23:52 83 95 04/08/24 23:51 80 119/61 04/08/24 23:47 78 94 04/08/24 23:46 76 82 L 04/08/24 23:42 85 95 04/08/24 23:41 85 119/66 04/08/24 23:40 36.8 C 18 04/08/24 23:37 80 95 04/08/24 23:32 79 95 04/08/24 23:31 78 119/59 L 04/08/24 23:27 77 94 04/08/24 23:22 80 95 04/08/24 23:21 75 122/72 04/08/24 23:17 74 95 04/08/24 23:12 95 04/08/24 23:12 76 94 04/08/24 23:11 72 120/93 04/08/24 23:10 36.8 C 18 04/08/24 23:10 36.8 C 18 04/08/24 23:07 83 95 04/08/24 23:04 83 94 04/08/24 23:02 88 96 04/08/24 23:01 77 118/65 04/08/24 23:00 36.9 C 18 04/08/24 22:58 76 94 04/08/24 22:57 72 96 04/08/24 22:52 80 96 04/08/24 22:51 75 111/59 L 04/08/24 22:50 36.9 C 18 04/08/24 22:47 81 97 04/08/24 22:42 85 98 04/08/24 22:41 82 105/57 L 04/08/24 22:40 36.9 C 18 04/08/24 22:37 87 98 04/08/24 22:32 84 97 04/08/24 22:31 77 104/59 L 04/08/24 22:30 36.9 C 18 04/08/24 22:27 79 96 04/08/24 22:22 75 97 04/08/24 22:21 77 105/55 L 04/08/24 22:20 36.9 C 18 04/08/24 22:18 88 92 04/08/24 22:17 89 97 04/08/24 22:13 76 90 04/08/24 22:12 75 96 04/08/24 22:10 36.9 C 18 04/08/24 22:10 80 99/58 L 04/08/24 22:07 98 04/08/24 22:07 90 04/08/24 22:07 109 H 93 04/08/24 21:01 89 137/77 04/08/24 20:59 87 94 04/08/24 20:58 96 H 100 04/08/24 20:53 78 97 04/08/24 20:48 113 H 96 04/08/24 20:43 90 95 04/08/24 20:38 80 96 04/08/24 20:33 100 H 96 04/08/24 20:32 77 125/68 04/08/24 20:28 75 96 04/08/24 20:23 74 96 04/08/24 20:18 93 H 97 04/08/24 20:17 107 H 152/81 H 04/08/24 20:13 70 91 04/08/24 20:08 74 96 04/08/24 20:03 74 96 04/08/24 19:58 71 97 04/08/24 19:53 78 98 04/08/24 19:48 75 94 04/08/24 19:43 83 97 04/08/24 19:38 80 97 04/08/24 19:33 79 138/79 98 04/08/24 19:28 73 98 04/08/24 19:23 72 96 04/08/24 19:18 71 98 04/08/24 19:17 81 132/86 04/08/24 19:15 36.8 C 18 04/08/24 19:13 71 98 04/08/24 19:10 18 04/08/24 19:10 36.8 C 18 04/08/24 19:08 89 98 04/08/24 19:03 82 98 04/08/24 19:02 85 04/08/24 19:02 86 147/82 H 93 04/08/24 18:58 67 94 04/08/24 18:55 65 94 04/08/24 18:53 65 94 04/08/24 18:50 65 94 04/08/24 18:48 64 95 04/08/24 18:47 63 139/78 04/08/24 18:43 67 94 04/08/24 18:40 66 94 04/08/24 18:38 65 94 04/08/24 18:35 64 94 04/08/24 18:33 61 125/68 95 04/08/24 18:29 61 94 04/08/24 18:28 64 95 04/08/24 18:23 91 H 97 04/08/24 18:18 82 97 04/08/24 18:13 69 97 04/08/24 18:08 77 96 04/08/24 18:03 77 97 04/08/24 18:02 80 145/68 H 04/08/24 17:58 72 95 04/08/24 17:54 77 94 04/08/24 17:53 90 96 04/08/24 17:48 76 95 04/08/24 17:47 75 117/56 L 04/08/24 17:43 81 97 04/08/24 17:38 79 97 04/08/24 17:33 97 04/08/24 17:33 84 04/08/24 17:33 74 124/63 04/08/24 17:28 96 H 98 04/08/24 17:23 76 97 O2 Del Method 04/09/24 03:00 04/09/24 02:00 04/09/24 01:45 Room Air 04/09/24 00:11 04/09/24 00:10 04/09/24 00:07 04/09/24 00:02 04/09/24 00:01 04/08/24 23:57 04/08/24 23:52 04/08/24 23:51 04/08/24 23:47 04/08/24 23:46 04/08/24 23:42 04/08/24 23:41 04/08/24 23:40 04/08/24 23:37 04/08/24 23:32 04/08/24 23:31 04/08/24 23:27 04/08/24 23:22 04/08/24 23:21 04/08/24 23:17 04/08/24 23:12 04/08/24 23:12 04/08/24 23:11 04/08/24 23:10 04/08/24 23:10 04/08/24 23:07 04/08/24 23:04 04/08/24 23:02 04/08/24 23:01 04/08/24 23:00 04/08/24 22:58 04/08/24 22:57 04/08/24 22:52 04/08/24 22:51 04/08/24 22:50 04/08/24 22:47 04/08/24 22:42 04/08/24 22:41 04/08/24 22:40 04/08/24 22:37 04/08/24 22:32 04/08/24 22:31 04/08/24 22:30 04/08/24 22:27 04/08/24 22:22 04/08/24 22:21 04/08/24 22:20 04/08/24 22:18 04/08/24 22:17 04/08/24 22:13 04/08/24 22:12 04/08/24 22:10 04/08/24 22:10 04/08/24 22:07 04/08/24 22:07 04/08/24 22:07 04/08/24 21:01 04/08/24 20:59 04/08/24 20:58 04/08/24 20:53 04/08/24 20:48 04/08/24 20:43 04/08/24 20:38 04/08/24 20:33 04/08/24 20:32 04/08/24 20:28 04/08/24 20:23 04/08/24 20:18 04/08/24 20:17 04/08/24 20:13 04/08/24 20:08 04/08/24 20:03 04/08/24 19:58 04/08/24 19:53 04/08/24 19:48 04/08/24 19:43 04/08/24 19:38 04/08/24 19:33 04/08/24 19:28 04/08/24 19:23 04/08/24 19:18 04/08/24 19:17 04/08/24 19:15 04/08/24 19:13 04/08/24 19:10 04/08/24 19:10 04/08/24 19:08 04/08/24 19:03 04/08/24 19:02 04/08/24 19:02 04/08/24 18:58 04/08/24 18:55 04/08/24 18:53 04/08/24 18:50 04/08/24 18:48 04/08/24 18:47 04/08/24 18:43 04/08/24 18:40 04/08/24 18:38 04/08/24 18:35 04/08/24 18:33 04/08/24 18:29 04/08/24 18:28 04/08/24 18:23 04/08/24 18:18 04/08/24 18:13 04/08/24 18:08 04/08/24 18:03 04/08/24 18:02 04/08/24 17:58 04/08/24 17:54 04/08/24 17:53 04/08/24 17:48 04/08/24 17:47 04/08/24 17:43 04/08/24 17:38 04/08/24 17:33 04/08/24 17:33 04/08/24 17:33 04/08/24 17:28 04/08/24 17:23 Laboratory Results 04/09/24 06:09 Supervising Physician <Martha Stephens MD, FACOG - Last Filed: 04/09/24 07:19> Co-Signing Physician Notes Resident Physician Supervision Note: I interviewed and examined the patient. Discussed with Dr. Rivera and agree with findings and plan as documented in the note. Any exceptions or clarifications are listed here: Doing well. continue metformin and see if she will need additional insulin. Dressing clean and dry. Can work on taking off dressing. ff/appro tender at u. Documented By: Martha Stephens MD, FACOG Resident Activity Tracking <Anveshi Nicole, MD - Last Filed: 04/09/24 07:07> Resident Involvement: Resident Care Provided Care Provided: Adult Hospital Medicine and OB Delivery
[2024-04-09] MEDS: ACETAMINOPHEN 325 MG TAB PO SCH (05:46)
[2024-04-09 06:30] LABS: Basophils # (auto) 0.02 K/uL (0.00-0.20); Basophils % (auto) 0.2 %; Hematocrit (blood only) 30.2 % (37.0-47.0); Hemoglobin 9.5 g/dl (12.0-16.0); Immature Granulocytes # (auto) 0.07 K/uL (0.01-0.20); Immature Granulocytes % (auto) 0.6 %; Lymphocytes # (auto) 1.54 K/uL (1.20-3.40); Lymphocytes % (auto) 12.5 %; Mean Corpuscular Hemoglobin 26.3 pg (25.0-34.0); Mean Corpuscular Hgb Conc 31.5 g/dL (32.0-36.0); Mean Corpuscular Volume 83.7 fL (80.0-100.0); Mean Platelet Volume 9.6 fL (9.4-12.4); Monocytes # (auto) 0.84 K/uL (0.11-0.59); Monocytes % (auto) 6.8 %; Neutrophils # (auto) 9.81 K/uL (1.40-6.50); Neutrophils % (auto) 79.9 %; Platelet Count 237 K/uL (130-400); RDW Coefficient of Variation 15.8 % (11.5-14.5); RDW Standard Deviation 47.5 fL (36.4-46.3); Red Blood Count 3.61 M/uL (4.20-5.40); White Blood Count 12.28 K/ul (4.8-10.8)
[2024-04-09] MEDS: DOCUSATE SODIUM 100 MG CAP PO SCH (08:34)
[2024-04-09] MEDS: FERROUS SULFATE 325 MG TAB PO SCH (08:34)
[2024-04-09] MEDS: PRENATAL VITAMIN 1 TAB PO SCH (08:34)
[2024-04-09] MEDS: metFORMIN HCL 500 MG TAB PO SCH (08:34)
[2024-04-09] MEDS: SIMETHICONE 80 MG CHEW PO SCH (08:34)
[2024-04-09] MEDS: SERTRALINE HCL 50 MG TABLET PO SCH (08:34)
[2024-04-09] MEDS ORDERED: Continuous Glucose Monitor SCH (09:00)
[2024-04-09] MEDS: Continuous Glucose Monitor SCH (11:39)
[2024-04-09] MEDS: bisacodyL 5 MG TABEC PO SCH (19:43)
[2024-04-09 20:14] VITALS: O2SAT 98
[2024-04-09] MEDS: oxyCODONE HCL IR 5 MG TAB (IMMEDIATE RELEASE) PO STA (20:24)
[2024-04-09] MEDS ORDERED: HYDROmorphone INJ 0.5 MG/0.5 ML SYR IV PRN (21:45)
[2024-04-09] MEDS ORDERED: diphenhydrAMINE Capsule 25 MG CAP PO PRN (21:45)
[2024-04-09] MEDS ORDERED: PROMETHAZINE 12.5 MG/50.5 ML BAG IV PRN (21:45)
[2024-04-09] MEDS ORDERED: ONDANSETRON INJ 2 MG/ML 2 ML VIAL IV PRN (21:45)
[2024-04-09] MEDS ORDERED: diphenhydrAMINE 50 MG/ML VIAL IV PRN (21:45)
[2024-04-09] MEDS ORDERED: KETOROLAC 30 MG/ML VIAL IV PRN (22:12)
[2024-04-09] MEDS: IBUPROFEN 600 MG TAB PO SCH (22:32)
[2024-04-09] MEDS ORDERED: LACTATED RINGER'S 1,000 ML IV SCH (22:45)
--- NOTE | 2024-04-10 06:03 | Obstetrical Progress Note ---
Date of Service <Devan Rivera MD - Last Filed: 04/10/24 07:37> April 10, 2024 Assessment & Plan <Devan Rivera MD - Last Filed: 04/10/24 07:37> (1) Carrier of group B Streptococcus: (2) care and examination: Plan POD#2 s/p LTCS: Stable, continue routine care, continue OOB and ambulation, diet as tolerated Rh+, gbs+, ri Plan for DC today, w pain medication <Linda Hawley MD, FACOG - Last Filed: 04/10/24 08:21> (1) Carrier of group B Streptococcus: (2) care and examination: Subjective <Devan Rivera MD - Last Filed: 04/10/24 07:37> Faith is a 28 y/o female who is POD#2 following delivery at term. Reported having no pain when drowsy, later said "I hurt today" Is tolerating meals, voiding, ambulating normally No BM yet but is passing gas Planning to breast feed Would like to go home if pain controlled Constitutional: no fever, no chills or no sweats Respiratory: no dyspnea Cardiovascular: no chest pain, no palpitations or no calf pain Breast: no breast pain Genitourinary (female): no dysuria Neurologic: no headache(s) Physical Exam <Devan Rivera MD - Last Filed: 04/10/24 07:37> General: Alert, oriented. No acute distress. Cardiac: Regular rate and rhythm, no murmurs, rubs, or gallops. Respiratory: Clear to auscultation bilaterally, no wheezes/rales/rhonchi. No increased work of breathing. Symmetrical chest rise. No respiratory distress. Abdomen: Soft, nontender, nondistended. Bowel sounds present. Uterus: Uterine fundus firm, nontender. Surgical scar healing well Lower extremities: No lower extremity edema or swelling. No deep calf pain. Results & Data <Devan Rivera MD - Last Filed: 04/10/24 07:37> Vital Signs (Past 12 Hours) Vital Signs Temp Pulse Resp BP Pulse Ox O2 Del Method 04/09/24 23:15 36.6 C 84 18 135/78 98 Room Air 04/09/24 19:15 36.6 C 76 18 124/78 98 Room Air Laboratory Results 04/10/24 05:54 04/09/24 21:03 POC Glucose 120 H Supervising Physician <Linda Hawley MD, FACOG - Last Filed: 04/10/24 08:21> Co-Signing Physician Notes Resident Physician Supervision Note: I interviewed and examined the patient. Discussed with Dr. Rivera and agree with findings and plan as documented in the note. Any exceptions or clarifications are listed here: [None] Documented By: Linda Hawley MD, FACOG Resident Activity Tracking <Devan Rivera MD - Last Filed: 04/10/24 07:37> Resident Involvement: Resident Care Provided Care Provided: Adult Hospital Medicine and OB Delivery
[2024-04-10 06:25] LABS: Hematocrit (blood only) 29.9 % (37.0-47.0); Hemoglobin 9.5 g/dl (12.0-16.0)
[2024-04-10] MEDS: oxyCODONE HCL IR 5 MG TAB (IMMEDIATE RELEASE) PO PRN (07:32)
[2024-04-10 09:41] VITALS: BP 116/78; TEMP 97.7
[2024-04-10 09:51] VITALS: PULSE 83
--- NOTE | 2024-04-10 13:14 | Communication Note ---
Date of Service: April 10, 2024 told by nursing pt was expecting zoloft script to be sent and worried about needing more narcotic i was told at signout plan for narcotic and sent rec pt try using alt meds for pain control, only day 2 so can opt to stay longer if pain mgmt an issue call with further needs if opts to go home as far as zoloft i see in a note by other provider plan to start pp, i sent script 30d and refill and have call into her delivering provider re: plan for followup, ie 2 wk depression check??
--- NOTE | 2024-04-10 15:16 | Anesthesiology Progress Note ---
Date of Service April 10, 2024 Anesthesia Post Procedure Vital Signs Vital Signs: Temp Pulse Pulse Resp BP Pulse Ox O2 Del Method 04/10/24 09:49 36.5 C 83 71 18 116/78 98 04/10/24 07:35 36.5 C 71 18 116/78 98 Room Air 04/09/24 23:15 36.6 C 84 18 135/78 98 Room Air 04/09/24 19:15 36.6 C 76 18 124/78 98 Room Air 04/09/24 15:55 36.5 C 71 18 123/78 97 Room Air Pain Intensity Abdomen: Pain Intensity: 6 Transfer of Care Handoff Completed per policy Notes Mental Status: alert / awake / arousable Patient Amnestic to Procedure: Yes Nausea / Vomiting: adequately controlled Pain: adequately controlled Airway Patency, RR, SpO2: stable & adequate BP & HR: stable & adequate Hydration State: stable & adequate Anesthetic Complications: no major complications apparent
[2024-04-10] MEDS ORDERED: IBUPROFEN 600 MG TAB PO PRN (22:12)
[2024-04-10] MEDS ORDERED: bisacodyL 10 MG SUPP PR PRN (22:12)
[2024-04-11] MEDS ORDERED: ACETAMINOPHEN 325 MG TAB PO PRN (04:12)
== END 2024-04-10 13:30 | disposition home or self-care (01) | DRG 787 ==
LOC: OPB 19:40 → 4S1 19:41 → 4E2 04-09 00:36